=== PATIENT | female | born 1995 | race Caucasian/White ===

== ENCOUNTER → 2021-06-25 07:19 | Outpatient (CLI) | payer OTHER, SELFPAY ==
[2021-06-25 07:56] LABS: COVID19 -Nasal RAPID Negative (Negative)
== END ==
PROVIDERS: Visit Provider Nurse Practitioner
DX: Z20.822 Contact with and (suspected) exposure to COVID-19 (principal); R09.82 Postnasal drip
CPT/HCPCS: 87635

== ENCOUNTER → 2021-07-14 07:59 | Outpatient (CLI) | payer OTHER, SELFPAY ==
[2021-07-14 10:15] LABS: Add Manual Diff / Slide Review NO; Basophils Absolute Auto 0 /uL (0-100); Basophils Percent Auto 0.3 % (0-2); Eosinophils Absolute Auto 100 /uL (0-450); Eosinophils Percent Auto 0.7 % (2-4); Hematocrit 38.3 % (36-46); Hemoglobin 13.3 g/dL (12.0-16.0); Lymphocytes Absolute Auto 1700 /uL (1100-4500); Lymphocytes Percent Auto 20.1 % (25-40); Mean Corpuscular HGB Conc 34.8 % (30-36); Mean Corpuscular Hemoglobin 30.5 PG (26-34); Mean Corpuscular Volume 87.7 fL (80-100); Monocytes Absolute Auto 500 /uL (0-900); Monocytes Percent Auto 5.5 % (3-14); Neutrophils Absolute Auto 6300 /uL (1500-7000); Neutrophils Percent Auto 73.4 % (50-75); Platelet Count 222 X10^3/uL (150-400); Red Blood Cell Count 4.36 X10^6/uL (4.0-5.2); Red Cell Distribution Width 12.4 % (11.6-14.8); White Blood Cell Count 8.6 X10^3/uL (4.5-11.0)
[2021-07-14 10:32] LABS: Alanine Aminotransferase 17 IU/L (<35); Albumin 4.7 g/dL (3.5-5.0); Albumin Globulin Ratio 1.6 (1.0-2.8); Alkaline Phosphatase 58 U/L (38-126); Aspartate Aminotransferase 28 IU/L (14-36); BUN Creatinine Ratio 15.2 (6-22); Bilirubin Total 2.4 mg/dL (0.2-1.3); Blood Urea Nitrogen 10 mg/dL (7-17); Calcium 9.7 mg/dL (8.4-10.2); Carbon Dioxide 25 mmol/L (22-32); Chloride 104 mmol/L (98-107); Cholesterol 196 mg/dL (140-199); Estimated Glomerular Filt Rate > 60.0 mL/min (>60); Globulin 2.9 g/dL (1.7-4.1); Glucose 97 mg/dL (70-100); HDL Cholesterol 73 mg/dL (40-60); HEMOLYSIS 38 (0-50); LDL Cholesterol Calculated 105 mg/dL (<100); Potassium 4.1 mmol/L (3.4-5.1); Sodium 137 mmol/L (137-145); Total Protein 7.6 g/dL (6.3-8.2); Triglycerides 89 mg/dL (35-150)
== END ==
PROVIDERS: PCP Registered Nurse; Referring Provider Registered Nurse; Visit Provider Registered Nurse
DX: F32.2 Major depressive disorder, single episode, severe without psychotic features (principal); F41.9 Anxiety disorder, unspecified; E78.5 Hyperlipidemia, unspecified
CPT/HCPCS: 80053; 80061; 85025

== ENCOUNTER → 2021-08-26 17:19 | Outpatient (CLI) | payer OTHER, SELFPAY | PROVIDERS: PCP Family Medicine; Referring Provider Internal Medicine; Visit Provider Internal Medicine | DX: Z23 Encounter for immunization (principal) | CPT/HCPCS: 90471; 90686 ==

== ENCOUNTER → 2021-10-08 10:28 | Outpatient (CLI) | payer OTHER, SELFPAY ==
[2021-10-08 13:04] LABS: COVID19 -Nasal RAPID Negative (Negative)
== END ==
PROVIDERS: PCP Family Medicine; Visit Provider Physician Assistant
DX: Z20.822 Contact with and (suspected) exposure to COVID-19 (principal); R05.9 Cough, unspecified; R07.89 Other chest pain; R09.81 Nasal congestion
CPT/HCPCS: 87635

== ENCOUNTER → 2021-12-31 09:47 | Outpatient (CLI) | payer OTHER, SELFPAY ==
[2022-01-02 09:07] LABS: Interpretation Negative (Negative)
== END ==
PROVIDERS: PCP Family Medicine; Referring Provider Family Medicine; Visit Provider Family Medicine
DX: K21.9 Gastro-esophageal reflux disease without esophagitis (principal)
CPT/HCPCS: 83013

== ENCOUNTER → 2022-11-07 07:42 | Outpatient (CLI) | payer OTHER, SELFPAY ==
--- NOTE | 2022-11-07 07:42 | DI.US.S_ITS ---
PROCEDURE: US PELVIC COMPLETE INDICATIONS: RIGHT PELVIC PAIN TECHNIQUE: Real-time scanning was performed of the pelvic organs, with image documentation. Additional endovaginal scanning was necessary due to incomplete visualization of the adnexal and endometrial structures by transabdominal scanning. COMPARISON: Located Within [facility], US, US PELVIC COMPLETE WITH TRANSVAGINAL, 05/24/2021, 11:25. FINDINGS: Uterus: Uterus is anteverted and normal in size at 7.3 x 4.6 x 3.1 cm. The myometrium is homogeneous. The endometrium measures 4.3 mm combined thickness. There is a tiny cyst at the fundal endometrium measuring 1.3 x 1.4 x 2.9 mm. An ovoid probable nabothian cyst is seen in the lower uterine segment/cervix. Ovaries: The right ovary measures 2.9 x 2.6 x 1.5 cm, with a calculated ovarian volume of 5.6 cc. The left ovary measures 4.6 x 2.1 x 1.9 cm, with a calculated ovarian volume of 9.4 cc. The ovaries have a normal sonographic appearance. Less than 12 follicles can be seen in each ovary. Normal arterial and venous flow in each ovary. No adnexal masses are seen. Other: Physiologic cul-de-sac fluid present. No pathologic free abdominal or pelvic fluid. IMPRESSION: 1. Normal ovaries. 2. 2.9 mm fundal endometrial cyst is nonspecific. Early intrauterine gestation may be present, however the endometrium is not thickened. This can also be seen in the setting of adenomyosis although there are no other features characteristic of adenomyosis. Correlation with beta HCG levels recommended. 3. A cervical/lower uterine segment nabothian cyst was present previously. We strive to produce accurate, complete, and clear reports of imaging services. To assist us in improving patient care, this report was composed using standard report templates and voice recognition software. Therefore, it may contain abnormal punctuation, insertions and/or omissions. Occasional wrong-word or sound-alike substitutions may occur. Though we review the report and make efforts to correct it, we do recommend that the report be read carefully in proper context to recognize any text inaccuracies. Dictated by: Chelsey Santo M.D. on 11/07/2022 at 11:46 Approved by: Chelsey Santo M.D. on 11/07/2022 at 11:52
== END ==
PROVIDERS: PCP Family Medicine; Referring Provider Physician Assistant Medical; Visit Provider Physician Assistant Medical
DX: N94.89 Other specified conditions associated with female genital organs and menstrual cycle (principal); R10.2 Pelvic and perineal pain
CPT/HCPCS: 76830; 76856; 81025; 93975

== ENCOUNTER → 2022-11-07 16:32 | Outpatient (CLI) | payer OTHER, SELFPAY ==
[2022-11-07 18:00] LABS: Pregnancy Test Urine Negative (Negative)
== END ==
PROVIDERS: PCP Family Medicine; Referring Provider Physician Assistant Medical; Visit Provider Physician Assistant Medical
DX: R10.2 Pelvic and perineal pain (principal)
CPT/HCPCS: 81025

== ENCOUNTER → 2024-01-24 10:02 | Outpatient (CLI) | payer OTHER, SELFPAY | PROVIDERS: PCP Family Medicine; Visit Provider Physician Assistant | DX: R10.9 Unspecified abdominal pain (principal) | CPT/HCPCS: 87086 ==